=== PATIENT | male | born 1985 | race Caucasian/White ===

== ENCOUNTER 2020-12-03 13:05 | Emergency (ER) | payer SELFPAY ==
[2020-12-03 13:11] VITALS: BP 151/92; PULSE 90; RESP 18; TEMP 36.5; O2SAT 100
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
== END 2020-12-03 14:15 | disposition home or self-care (01) ==
LOC: ER 14:04
PROVIDERS: Emergency Provider Registered Nurse Emergency
DX: S81.812A Laceration without foreign body, left lower leg, initial encounter (principal); W26.8XXA Contact with other sharp object(s), not elsewhere classified, initial encounter; Y93.55 Activity, bike riding
CPT/HCPCS: 12002